=== PATIENT | female | born 1990 | race American Indian/Alaskan Native ===

== ENCOUNTER 2018-02-21 22:47 | Emergency (ER) | payer SELFPAY ==
[2018-02-21 23:34] VITALS: BP 146/72
--- NOTE | 2018-02-22 00:32 | XRay Report ---
FINAL REPORT PROCEDURE: XR FOREARM RT TECHNIQUE: RIGHT forearm radiographs, AP and lateral views. CPT 26144 HISTORY: fall with pain and swelling COMPARISON: No prior studies are available for comparison. FINDINGS: Fracture (s) and/or Dislocation(s): None . Joint space(s): Normal . Soft tissues: Normal . Bone mineralization: Normal . Foreign bodies: None . IMPRESSION: Normal Examination
--- NOTE | 2018-02-22 00:34 | XRay Report ---
FINAL REPORT PROCEDURE: XR WRIST 3+V RT TECHNIQUE: AP, oblique, lateral view and navicular views were obtained HISTORY: fall with pain and swelling COMPARISON: No prior studies are available for comparison. FINDINGS: No fracture or dislocation is visualized. Bone density and joint spaces appear normal. IMPRESSION: Negative exam. No evidence of fracture or dislocation.
--- NOTE | 2018-02-22 02:48 | Emergency Department Report ---
Upper Extremity - HPI Chief Complaint: Upper Respiratory Infection Stated Complaint: RT ARM INJURY Time Seen by Provider: 02/22/18 02:21 Upper Extremity: Right Elbow Occurred When: 1 Day Mechanism: Fall Symptoms: Yes Pain with Movement, Yes Swelling, No Deformity, No Limited Range of Movement, No Numbness, No Bruising/Ecchymosis, No Laceration or Abrasion ED Review of Systems ROS: Stated complaint: RT ARM INJURY Other details as noted in HPI Constitutional: denies: chills, fever Eyes: denies: eye pain, eye discharge, vision change ENT: denies: ear pain, throat pain Respiratory: denies: cough, shortness of breath, wheezing Cardiovascular: denies: chest pain, palpitations Endocrine: no symptoms reported Gastrointestinal: denies: abdominal pain, nausea, diarrhea Genitourinary: denies: urgency, dysuria, discharge Musculoskeletal: joint swelling. denies: back pain, arthralgia Skin: denies: rash, lesions Neurological: denies: headache, weakness, paresthesias Psychiatric: denies: anxiety, depression Hematological/Lymphatic: denies: easy bleeding, easy bruising ED Past Medical Hx - Past Medical History Previous Medical History?: No - Surgical History Past Surgical History?: Yes Additional Surgical History: D&C - Social History Smoking Status: Never Smoker Substance Use Type: Marijuana Upper Extremity Exam - Exam General: Vital signs noted. No distress. Alert and acting appropriately. Head and Torso: No HEENT Abnormality, No Neck Tenderness, No Chest/Lungs Abnormality, No Abdominal Tenderness, No Back Tenderness Shoulder Exam: Yes Normal Range of Motion in Shoulder, No Shoulder Tenderness, No Clavicle Tenderness, No Shoulder Deformity, No AC Joint Tenderness Arm Exam: No Arm/Humerus Tenderness, No Arm Deformity Elbow: Yes Elbow Tenderness (pain around the left no process region. There is some swelling noted. No abrasion. Normal supination and pronation. Full flexion and extension with some discomfort. No deformity. Pulses 2+), No Normal Range of Motion in Elbow, No Elbow Deformity Forearm: No Forearm Tenderness, No Forearm Deformity, No Pain with Pronation, No Pain with Supination Wrist: Yes Normal ROM in Wrist, No Wrist Tenderness, No Wrist Deformity, No Sn uffbox Tenderness, No Pain with Axial Thumb Compression Hand: Yes Normal ROM in Digit(s), No Hand Tenderness, No Hand Deformity, No Digit Tenderness, No Digit(s) Deformity, No Tendon Dysfunction CMS Exam: No Broken Skin, No Normal Distal Pulses, No Normal Capillary Refill, No Normal Distal Sensation ED Course Vital Signs 02/21/18 23:28 Temperature 98.6 F Pulse Rate 69 Respiratory 16 Rate Blood Pressure 146/72 O2 Sat by Pulse 100 Oximetry Critical care attestation.: If time is entered above; I have spent that time in minutes in the direct care of this critically ill patient, excluding procedure time. ED Disposition Clinical Impression: Elbow contusion Disposition: TO HOME OR SELFCARE Is pt being admited?: No Does the pt Need Aspirin: No Condition: Stable Instructions: Contusion in Adults (ED), RICE Therapy (ED) Referrals: PRIMARY CARE [Primary Care Provider] - 3-5 Days [facility] [Provider Group] - 3-5 Days
== END 2018-02-22 02:54 | disposition home or self-care (01) ==
LOC: ED 22:47
DX: S50.01XA Contusion of right elbow, initial encounter (principal); W18.39XA Other fall on same level, initial encounter; Y93.89 Activity, other specified; Y92.89 Other specified places as the place of occurrence of the external cause; Y99.8 Other external cause status
CPT/HCPCS: 99284

== ENCOUNTER 2018-05-24 15:04 | Emergency (ER) | payer MEDICAID, OTHER ==
--- NOTE | 2018-05-24 15:10 | Emergency Department Report ---
Blank Doc - Documentation Documentation: This is a 27-year-old female that presents with nausea with vomiting and pain in chest in inspiration. Also stated also has some headache. Denies worst headache or thunderclap headache. Neuro exam WNL. This initial assessment/diagnostic orders/clinical plan/treatment(s) is/are subject to change based on patient's health status, clinical progression and re- assessment by fellow clinical providers in the ED. Further treatment and workup at subsequent clinical providers discretion. Patient/guardians urged not to elope from the ED as their condition may be serious if not clinically assessed and managed. Initial orders include: 1- Patient sent to [facility] for further evaluation and treatment 2- EKG 3- Labs 4- CXR
[2018-05-24 15:26] VITALS: BP 128/57
[2018-05-24 15:43] LABS: Basophils % (Auto) 0.6 % (0.0-1.8); Eosinophils # (Auto) 0.1 K/mm3 (0.0-0.4); Eosinophils % (Auto) 2.6 % (0.0-4.3); Hematocrit 28.4 % (30.3-42.9); Hemoglobin 9.5 gm/dl (10.1-14.3); Lymphocytes # (Auto) 1.2 K/mm3 (1.2-5.4); Lymphocytes % (Auto) 24.2 % (13.4-35.0); Mean Corpuscular HGB Conc 33 % (30-34); Mean Corpuscular Volume 82 fl (79-97); Monocytes # (Auto) 0.5 K/mm3 (0.0-0.8); Monocytes % (Auto) 9.5 % (0.0-7.3); Platelet Count 276 K/mm3 (140-440); Red Blood Count 3.45 M/mm3 (3.65-5.03)
[2018-05-24 15:44] LABS: Red Cell Distribution Width 24.9 % (13.2-15.2)
[2018-05-24 16:05] LABS: Alanine Aminotransferase 5 units/L (7-56); Albumin 3.6 g/dL (3.9-5); BUN/Creatinine Ratio 13; Blood Urea Nitrogen 8 mg/dL (7-17); Calcium 8.8 mg/dL (8.4-10.2); Hemolysis Index 1
[2018-05-24 16:06] LABS: Bilirubin,Direct < 0.2 mg/dL (0-0.2)
--- NOTE | 2018-05-24 16:23 | Emergency Department Report ---
ED Dysuria HPI - HPI Chief Complaint: Chest Pain Stated Complaint: CHEST PAIN/NAUSEA/HEADACHE Time Seen by Provider: 05/24/18 15:08 Duration: 1 Day Severity: Mild Symptoms: Dysuria: No, Frequency: No, Suprapubic Pain: No, Flank Pain: No, Fever: No, Hematuria: No, Abdominal Pain: No, Previous UTI's: No Other History: She is a 27-year-old female comes to the ER with various complaints including nausea and vomiting up mucus. She states that this occurred today while walking out of [address] car. Patient denied abdominal pain. Last menstrual period 212: Patient not concerned . Patient playing on her phone during HPI. Patient no home medications. Denies any significant medical history. Vital signs are stable, patient afebrile, and ambulatory on arrival to the ED. ED Review of Systems ROS: Stated complaint: CHEST PAIN/NAUSEA/HEADACHE Other details as noted in HPI Comment: All other systems reviewed and negative ED Past Medical Hx - Past Medical History Previous Medical History?: Yes Additional medical history: INCOMP. CERVIX - Surgical History Additional Surgical History: D&C - Social History Smoking Status: Never Smoker Substance Use Type: Marijuana - Medications Home Medications: Home Medications Medication Instructions Recorded Confirmed Last Taken Type Ondansetron [Zofran Odt] 4 mg PO Q8HR PRN #10 tab.rapdis 05/24/18 Unknown Rx Dysuria Exam - Exam General: Vital signs noted. No distress. Alert and acting appropriately. Exam: Yes Moist Mucous Membranes, No CVA Tenderness, No Abdominal Tenderness, No Rigidity or Guarding Labs: Lab Results 05/24/18 05/24/18 05/24/18 Range/Units 15:34 15:34 15:34 WBC 5.0 (4.5-11.0) K/mm3 RBC 3.45 L (3.65-5.03) M/mm3 Hgb 9.5 L (10.1-14.3) gm/dl Hct 28.4 L (30.3-42.9) % MCV 82 (79-97) fl MCH 28 (28-32) pg MCHC 33 (30-34) % RDW 24.9 H (13.2-15.2) % Plt Count 276 (140-440) K/mm3 Lymph % (Auto) 24.2 (13.4-35.0) % [place] % (Auto) 9.5 H (0.0-7.3) % Eos % (Auto) 2.6 (0.0-4.3) % Baso % (Auto) 0.6 (0.0-1.8) % Lymph # 1.2 (1.2-5.4) K/mm3 [place] # 0.5 (0.0-0.8) K/mm3 Eos # 0.1 (0.0-0.4) K/mm3 Baso # 0.0 (0.0-0.1) K/mm3 Seg Neutrophils % 63.1 (40.0-70.0) % Seg Neutrophils # 3.2 (1.8-7.7) K/mm3 Sodium 138 (137-145) mmol/L Potassium 4.0 (3.6-5.0) mmol/L Chloride 103.2 (98-107) mmol/L Carbon Dioxide 24 (22-30) mmol/L Anion Gap 15 mmol/L BUN 8 (7-17) mg/dL Creatinine 0.6 L (0.7-1.2) mg/dL Estimated GFR > 60 ml/min BUN/Creatinine Ratio 13 % Glucose 92 (65-100) mg/dL Calcium 8.8 (8.4-10.2) mg/dL Total Bilirubin < 0.20 (0.1-1.2) mg/dL Direct Bilirubin < 0.2 (0-0.2) mg/dL Indirect Bilirubin 0.0 mg/dL AST 13 (5-40) units/L ALT 5 L (7-56) units/L Alkaline Phosphatase 34 L (35-129) units/L Troponin T < 0.010 (0.00-0.029) ng/mL Total Protein 6.4 (6.3-8.2) g/dL Albumin 3.6 L (3.9-5) g/dL Albumin/Globulin Ratio 1.3 % Lipase 23 (13-60) units/L HCG, Qual Positive (Negative) ED Course Vital Signs 05/24/18 15:24 Temperature 98.7 F Pulse Rate 77 Respiratory 16 Rate Blood Pressure 128/57 O2 Sat by Pulse 100 Oximetry ED Medical Decision Making - Lab Data Result diagrams: 05/24/18 15:34 05/24/18 15:34 - Medical Decision Making Vital Signs (72 hours) 05/24/18 15:24 Temperature 98.7 F Pulse Rate 77 Respiratory 16 Rate Blood Pressure 128/57 O2 Sat by Pulse 100 Oximetry Labs 05/24/18 05/24/18 05/24/18 15:34 15:34 15:34 WBC 5.0 RBC 3.45 L Hgb 9.5 L Hct 28.4 L MCV 82 MCH 28 MCHC 33 RDW 24.9 H Plt Count 276 Lymph % (Auto) 24.2 [place] % (Auto) 9.5 H Eos % (Auto) 2.6 Baso % (Auto) 0.6 Lymph # 1.2 [place] # 0.5 Eos # 0.1 Baso # 0.0 Seg Neutrophils % 63.1 Seg Neutrophils # 3.2 Sodium 138 Potassium 4.0 Chloride 103.2 Carbon Dioxide 24 Anion Gap 15 BUN 8 Creatinine 0.6 L Estimated GFR > 60 BUN/Creatinine Ratio 13 Glucose 92 Calcium 8.8 Total Bilirubin < 0.20 Direct Bilirubin < 0.2 Indirect Bilirubin 0.0 AST 13 ALT 5 L Alkaline Phosphatase 34 L Troponin T < 0.010 Total Protein 6.4 Albumin 3.6 L Albumin/Globulin Ratio 1.3 Lipase 23 HCG, Qual Positive POS PREG NOTED PT THEN SHARED INCOMP CERVIX HISTORY WILL FOLLOW UP WITH OBGYN NO VAG BLEED, NO VAG DC, NO ABD PAIN VSS Critical care attestation.: If time is entered above; I have spent that time in minutes in the direct care of this critically ill patient, excluding procedure time. ED Disposition Clinical Impression: Disposition: DC-01 TO HOME OR SELFCARE Is pt being admited?: No Does the pt Need Aspirin: No Condition: Stable Instructions: (ED) Additional Instructions: VITAMIN HYDRATE WELL TYLENOL FOR PAIN SALINE NASAL SPRAY FOR MUCOUS MED ORDERED FOR NAUSEA FOLLOW UP OBGYN JAQUELIN Prescriptions: Ondansetron [Zofran Odt] 4 mg PO Q8HR PRN #10 tab.rapdis PRN Reason: Vomiting Referrals: PRIMARY CARE, [Primary Care Provider] - 3-5 Days Time of Disposition: 16:22
== END 2018-05-24 16:25 | disposition home or self-care (01) ==
LOC: ED 15:04
DX: O26.891 Other specified pregnancy related conditions, first trimester (principal); Z3A.01 Less than 8 weeks gestation of pregnancy
CPT/HCPCS: 36415; 80048; 80076; 83690; 84484; 84703; 85025; 93005; 93010; 99283